=== PATIENT | male | born 1985 | race Hispanic/Latino ===

== ENCOUNTER → 2016-08-27 | Outpatient (CLI) | payer BC | LOC: LAB 12:46 | PROVIDERS: ATTEND Family Medicine | DX: R19.7 Diarrhea, unspecified (principal) | CPT/HCPCS: 87324; 87449 ==

== ENCOUNTER → 2017-08-05 | Outpatient (CLI) | payer BC ==
[2017-08-05 11:57] LABS: BILIRUBIN,URINE NEGATIVE (NEGATIVE); CLARITY,URINE CLEAR; COLOR,URINE YELLOW; GLUCOSE, URINE (UA) NEGATIVE (NEGATIVE); KETONES,URINE NEGATIVE (NEGATIVE); LEUKOCYTE ESTERASE ,URINE NEGATIVE (NEGATIVE); NITRITE,URINE NEGATIVE (NEGATIVE); PH,URINE 6 (5-9); PROTEIN,URINE NEGATIVE (NEGATIVE); UROBILINOGEN,URINE 1 MG/DL (NORMAL)
[2017-08-05 12:13] LABS: BACTERIA,URINE NEGATIVE /HPF
== END ==
LOC: LAB 11:40
PROVIDERS: ATTEND Family Medicine
DX: R30.0 Dysuria (principal)
CPT/HCPCS: 81000

== ENCOUNTER → 2020-08-07 | Outpatient (CLI) | payer BC ==
--- NOTE | 2020-08-07 09:01 | Diagnostic Imaging Report ---
PROCEDURE: CT urinary tract, rule out kidney stone. TECHNIQUE: Multiple contiguous axial images were obtained through the abdomen and pelvis without the use of intravenous contrast. Auto Exposure Controls were utilized during the CT exam to meet ALARA standards for radiation dose reduction. INDICATION: Hematuria and urinary tract infection. Unenhanced images of the liver, gallbladder, pancreas, adrenal glands and spleen are unremarkable. There are multiple stones present in the kidneys, bilaterally. This includes an approximate 1.2 cm nonobstructing stone in the lower pole of the right kidney. Stones are largest in the left kidney in the lower pole as well reaching 1 cm in size. There is no hydronephrosis. No ureteric stone or calculus is identified. Gastric granulomas are seen in the visualized right lung base and the liver. The appendix has a normal appearance. There is moderate amount of stool in the colon, most pronounced on the right. There is no evidence of bladder stone. No free fluid or organized fluid collection is identified. There is mild lumbar spondylosis most pronounced on the right at L5-S1. IMPRESSION: Bilateral nonobstructing calculi measuring up to 1.2 cm on the right and 1.0 cm on the left. Otherwise, no acute abnormality is detected. Dictated by: Dictated on workstation # [id number]
--- NOTE | 2020-08-07 09:49 | Diagnostic Imaging Report ---
Indication: Abdominal pain. Time of exam: 8:50 AM Calcific densities overlie the lower poles of both renal shadows. Calculus on the right is approximately 12 mm. There appear to be several calculi on the left, largest proximally 9 mm. No definite calculi along the expected distribution of the ureters is seen. No pelvic calcifications are identified. IMPRESSION: Calcific densities overlie both renal shadows suggestive of nephrolithiasis. No definite ureteral calculi are detected. Dictated by: Dictated on workstation # [id number]
== END ==
LOC: RAD 08:31
PROVIDERS: ATTEND Urology
DX: N20.0 Calculus of kidney (principal); N28.89 Other specified disorders of kidney and ureter
CPT/HCPCS: 74018; 74176

== ENCOUNTER → 2020-09-07 | Outpatient (CLI) | payer BC ==
--- NOTE | 2020-09-07 11:15 | Diagnostic Imaging Report ---
INDICATION: History of renal calculi. COMPARISON: 08/07/2020 FINDINGS: Two supine radiographic views of the abdomen were obtained and again demonstrate single bulky calcification projecting over the lower poles of the bilateral renal shadows. More punctate microcalcifications are also seen projecting over the superior pole of the left kidney as well. Findings are felt to correspond to renal calculi seen on previous CT. No unexpected extraosseous calcifications or radiopaque foreign bodies are seen. Small bowel loops are nondistended. There is no large collection of free intraperitoneal air. Osseous structures show no acute abnormalities. IMPRESSION: 1. Bilateral nephrolithiasis. 2. Nonobstructive small bowel gas pattern. Dictated by: Dictated on workstation # [id number]
== END ==
LOC: RAD
PROVIDERS: ATTEND Urology
DX: N20.0 Calculus of kidney (principal)
CPT/HCPCS: 74018

== ENCOUNTER → 2022-06-05 | Outpatient (CLI) | payer BC ==
--- NOTE | 2022-06-05 16:33 | Diagnostic Imaging Report ---
INDICATION: Bilateral renal calculi. AP views of abdomen are obtained. There is an approximately 1.1 cm calcification projecting over the medial aspect of left kidney with several stones seen along the inferior aspect of right kidney measuring up to 0.9 cm in size. Otherwise no definite ureteric stone is identified. There is no radiographic evidence of bladder calculus. IMPRESSION: Findings indicate bilateral nephrolithiasis with largest elongated calculus reaching 1.1 cm along the medial aspect of the left kidney. This could reside within the renal pelvis. Calcification projecting over lower pole of the right kidney measuring up to 0.9 cm in size. Dictated by: Dictated on workstation # [id number]
== END ==
LOC: RAD 15:36
PROVIDERS: ATTEND Urology
DX: N20.0 Calculus of kidney (principal); N28.89 Other specified disorders of kidney and ureter
CPT/HCPCS: 74018